=== PATIENT | female | born 1965 | race Caucasian/White ===

== ENCOUNTER 2016-09-29 14:43 | Emergency (ER) | payer BC ==
[~2016-09-29] VITALS: Ht 172.7 cm; Wt 85.0 kg
[2016-09-29 14:48] VITALS: BP 124/71; PULSE 79; RESP 22; TEMP 98; O2SAT 96
--- NOTE | 2016-09-29 14:56 | PD ---
Physical Exam Time Seen by Provider: 14:53 Narrative 51yo F c/o being in afib x3days. Hx of afib. Hoping she was going to convert, but hasn't. Denies anticoagulants. Has been taking ASA since onset. Reports dizziness, near syncope, chest discomfort, and diaphoresis. Patient seen in triage. Awaiting bed placement. VS reviewed. Data Data Last Documented VS Vital Signs Date Time Temp Pulse Resp B/P Pulse Ox O2 Delivery O2 Flow Rate FiO2 09/29/16 14:48 98.0 79 22 124/71 96 MDM Supervised Visit with LAURA: Geri Barton September 29, 2016 14:56
[2016-09-29 15:20] VITALS: BP 123/81; PULSE 135; RESP 20; TEMP 98.7; O2SAT 95
[2016-09-29] MEDS ORDERED: ZYRT10CA PO (15:41)
[2016-09-29] MEDS ORDERED: LISI10TA PO (15:41)
[2016-09-29] MEDS ORDERED: ATEN50TA PO (15:41)
[2016-09-29] MEDS ORDERED: MULTTAB67 PO (15:41)
[2016-09-29] MEDS ORDERED: ATOR40TA16 PO (15:41)
[2016-09-29 15:55] VITALS: BP 100/62; PULSE 129; O2SAT 96
--- NOTE | 2016-09-29 15:57 | PD ---
HPI Chief Complaint: Cardiac Complaint Time Seen by Provider: 15:38 Travel History International Travel<30 days: No Contact w/Intl Traveler<30days: No Traveled to known affect area: No History of Present Illness HPI The patient was seen and examined in the presence of the nurse. This patient complains of rapid atrial fibrillation. She has long-standing history of atrial fibrillation dating back 25 years. She takes no blood thinners. She is been having tachycardia and palpitations for 3 days now. Symptoms severity is mild to moderate. She does have some lightheadedness but no chest pain pressure tightness nor heaviness. No syncope. After 3 days of this and not converting spontaneously she came to the ER. No alleviating factors. PFSH Past Medical History Atrial Fibrillation: Yes (DIAG 25 YRS AGO) Cardiovascular Problems: Yes (afib) Hypertension: Yes Triglycerides - High: Yes Tetanus Vaccination: > 5 Years Influenza Vaccination: Yes ?: Not : 2 Para: 2 Social History Alcohol Use: No (OCC) Tobacco Use: Yes Substance Use: No Allergies-Medications (Allergen,Severity, Reaction): Coded Allergies: Latex (Verified Allergy, Unknown, 09/29/16) Reported Meds & Prescriptions Reported Meds & Active Scripts Active Reported Zyrtec Allergy (Cetirizine HCl) 10 Mg Cap 10 Mg PO DAILY Multiple Vitamin 1 Tab 1 Tab PO DAILY Atorvastatin (Atorvastatin Calcium) 40 Mg Tab 150 Mg PO HS Lisinopril-Hctz 10-12.5 Mg Tab 1 Tab PO DAILY Atenolol 50 Mg Tab 50 Mg PO BID Review of Systems General / Constitutional: No: Fever Eyes: No: Visual changes HENT: Positive: Lightheadedness, No: Headaches Cardiovascular: Positive: Irregular Rhythm, Tachycardia, No: Chest Pain or Discomfort Respiratory: No: Shortness of Breath Gastrointestinal: No: Abdominal Pain Genitourinary: No: Dysuria Musculoskeletal: No: Pain Skin: No Rash Neurologic: No: Weakness Psychiatric: No: Depression Endocrine: No: Polydipsia Hematologic/Lymphatic: No: Easy Bruising Physical Exam Narrative GENERAL: Well-nourished, well-developed patient in no apparent distress. SKIN: Focused skin assessment reveals no rash and nodules. Skin is Warm and dry. HEAD: Atraumatic. Normocephalic. EYES: Pupils equal and round. No scleral icterus. No injection or drainage. ENT: No nasal bleeding or discharge. Mucous membranes pink and moist. NECK: Trachea midline. No JVD. CARDIOVASCULAR: Irregularly irregular rhythm. No murmur appreciated. Heart rate 145 RESPIRATORY: No accessory muscle use. Clear to auscultation. Breath sounds equal bilaterally. GASTROINTESTINAL: Abdomen soft, non-tender, nondistended. Hepatic and splenic margins not palpable. MUSCULOSKELETAL: No obvious deformities. No clubbing. No cyanosis. No edema. NEUROLOGICAL: Awake and alert. No obvious cranial nerve deficits. Motor grossly within normal limits. Normal speech. PSYCHIATRIC: Appropriate mood and affect; insight and judgment normal. Data Data Last Documented VS Vital Signs Date Time Temp Pulse Resp B/P Pulse Ox O2 Delivery O2 Flow Rate FiO2 09/29/16 17:00 82 20 112/58 95 Room Air 09/29/16 15:20 98.7 Orders Electrocardiogram (09/29/16 ) Iv Access Insert/Monitor (09/29/16 15:48) Barrel Rifler Hook / Telemetry OLIVER.Q8H (09/29/16 15:48) Complete Blood Count With Diff (09/29/16 15:48) Basic Metabolic Panel (Bmp) (09/29/16 15:48) Prothrombin Time / Inr (Pt) (09/29/16 15:48) Act Partial Throm Time (Ptt) (09/29/16 15:48) Diltiazem Inj (Cardizem Inj) (09/29/16 16:00) Labs Laboratory Tests Test 09/29/16 15:52 White Blood Count 7.2 TH/MM3 Red Blood Count 4.31 MIL/MM3 Hemoglobin 14.4 GM/DL Hematocrit 40.5 % Mean Corpuscular Volume 93.8 FL Mean Corpuscular Hemoglobin 33.3 PG Mean Corpuscular Hemoglobin 35.5 % Concent Red Cell Distribution Width 12.9 % Platelet Count 208 TH/MM3 Mean Platelet Volume 9.2 FL Neutrophils (%) (Auto) 47.3 % Lymphocytes (%) (Auto) 40.7 % Monocytes (%) (Auto) 9.3 % Eosinophils (%) (Auto) 2.1 % Basophils (%) (Auto) 0.6 % Neutrophils # (Auto) 3.4 TH/MM3 Lymphocytes # (Auto) 2.9 TH/MM3 Monocytes # (Auto) 0.7 TH/MM3 Eosinophils # (Auto) 0.1 TH/MM3 Basophils # (Auto) 0.0 TH/MM3 CBC Comment DIFF FINAL Differential Comment Prothrombin Time 10.6 SEC Prothromb Time International 1.0 RATIO Ratio Activated Partial 24.3 SEC Thromboplast Time Sodium Level 134 MEQ/L Potassium Level 4.2 MEQ/L Chloride Level 96 MEQ/L Carbon Dioxide Level 27.9 MEQ/L Anion Gap 10 MEQ/L Blood Urea Nitrogen 10 MG/DL Creatinine 0.60 MG/DL Estimat Glomerular Filtration 106 ML/MIN Rate Random Glucose 95 MG/DL Calcium Level 9.8 MG/DL [facility] Medical Decision Making Medical Screen Exam Complete: Yes Emergency Medical Condition: Yes Medical Record Reviewed: Yes Differential Diagnosis A. fib with RVR, SVT, ventricular tachycardia Narrative Course I have reviewed the patient's electronic medical record. Extended cardiac monitoring confirms A. fib with RVR with a rate in the 140s I reviewed her EKG IV placed I gave her 20 mg IV Cardizem CBC is normal Metabolic profile is normal Coagulation studies are normal I've monitor the patient for a couple hours after Cardizem and her rate is in the 90s. She feels much better. Stable for outpatient follow-up Recommending she increase her atenolol to 75 mg twice a day and she is going to stop the lisinopril and track her heart rate and blood pressures frequently. Standard of care would be to get her on a blood thinner but she has refused this in the past. I've asked her to speak with her physician about this. She will need to except having increased stroke risk if she does not want blood thinners. She does have an appointment with case fitter October 17 but I told her not to wait until then to have this discussion. She should at least take a daily aspirin while thinking about this. Diagnosis Primary Impression: Atrial fibrillation with RVR Additional Impression: Lightheadedness Additional Instructions: Increase atenolol to 75 mg twice a day Stop lisinopril Check pulse and blood pressure twice daily and if any symptoms occur Call primary physician tomorrow for follow-up as well as recommendations about taking a blood thinner You will be at increased risk for stroke if you do not take a blood thinner Start full-strength daily aspirin until a decision on blood thinners has been made by you and your physician Med/Other Pt SpecificInfo: Other Disposition: DISCHARGE HOME Condition: Stable Alok Campbell MD September 29, 2016 15:57
[2016-09-29] MEDS ORDERED: DILTIAZEM HCL 25 MG/5 ML VIAL IV ONE (16:00)
[2016-09-29 17:00] VITALS: BP 112/58; PULSE 82; RESP 20; O2SAT 95
[2016-09-29 17:31] LABS: AUTOMATED NEUTROPHIL # 3.4 TH/MM3 (1.8-7.7); BASOPHIL % 0.6 % (0.0-2.0); EOSINOPHIL # 0.1 TH/MM3 (0-0.4); EOSINOPHIL % 2.1 % (0.0-4.0); HEMATOCRIT 40.5 % (35.0-46.0); HEMO FLAGS DIFF FINAL; LYMPH % 40.7 % (9.0-44.0); LYMPHOCYTE # 2.9 TH/MM3 (1.0-4.8); MEAN CELL VOLUME 93.8 FL (80.0-100.0); MEAN CORPUSCULAR HEMOGLOBIN 33.3 PG (27.0-34.0); MEAN CORPUSCULAR HGB CONC 35.5 % (32.0-36.0); MONO % 9.3 % (0.0-8.0); NEUT % 47.3 % (16.0-70.0); PLATELET COUNT 208 TH/MM3 (150-450); RED BLOOD COUNT 4.31 MIL/MM3 (4.00-5.30); RED CELL DISTRIBUTION WIDTH 12.9 % (11.6-17.2); WHITE BLOOD COUNT 7.2 TH/MM3 (4.0-11.0)
[2016-09-29 17:54] LABS: APTT (PATIENT) 24.3 SEC (24.3-30.1); PROTHROMBIN TIME - PATIENT 10.6 SEC (9.8-11.6)
[2016-09-29 17:55] LABS: BICARBONATE 27.9 MEQ/L (21.0-32.0); POTASSIUM 4.2 MEQ/L (3.5-5.1)
--- NOTE | 2016-09-30 21:47 | EKG ---
Date Performed: 09/29/2016 Time Performed: 15:02:04 PTAGE: 51 years EKG: ATRIAL FIBRILLATION WITH RAPID VENTRICULAR RESPONSE INFERIOR MYOCARDIAL INFARCTION ABNORMAL ECG NO PREVIOUS TRACING DOCTOR: Jac Mendez Interpretating Date/Time 09/30/2016 21:45:39
== END 2016-09-29 19:05 | disposition home or self-care (01) ==
LOC: NEPC 14:43
DX: I48.91 Unspecified atrial fibrillation (principal); R42 Dizziness and giddiness; R94.31 Abnormal electrocardiogram [ECG] [EKG]; I10 Essential (primary) hypertension; E78.1 Pure hyperglyceridemia; Z72.0 Tobacco use; Z86.79 Personal history of other diseases of the circulatory system
CPT/HCPCS: 80048; 85025; 85610; 85730; 93005; 96374

== ENCOUNTER 2016-10-03 08:07 | Inpatient (IN) | payer BC ==
[~2016-10-03] VITALS: Ht 172.7 cm; Wt 91.5 kg
[~2016-10-03 08:07] MED LIST: ATEN50TA PO; ATOR40TA16 PO; LISI10TA PO; MULTTAB67 PO; ZYRT10CA PO
[2016-10-03 08:11] VITALS: BP 126/84; PULSE 94; RESP 16; TEMP 98.1; O2SAT 99
--- NOTE | 2016-10-03 08:24 | PD ---
HPI Chief Complaint: Cardiac Complaint Time Seen by Provider: 08:23 Travel History International Travel<30 days: No Contact w/Intl Traveler<30days: No Traveled to known affect area: No History of Present Illness HPI 51-year-old female came to the emergency room with history of palpitation and atrial fibrillation with RVR that's been going on for past 3 days. Patient says she has history of atrial fibrillation and has had it for past 18 years. She is on beta aicha which did not cause any problems up until one week ago when she went into RVR. She came to this emergency room and was given Cardizem which slowed her heart rate down. She was doing fine up until Monday when she started getting the same feeling. She has been lightheaded and dizzy. She says she did not want to come during the weekend and hence came today. Her heart rate here was in the 150s. Patient is a daily smoker and drinks alcohol occasionally as well as coffee. She has been drinking coffee and wine over the weekend. She was awake and answering questions appropriately. Her is in the room as well who has been giving additional history. 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 [facility] Past Medical History Narrative Medical List of her past medical, surgical, social and family history was reviewed from the nursing note. Hx Anticoagulant Therapy: No Atrial Fibrillation: Yes (DIAG 25 YRS AGO) Cardiovascular Problems: Yes Hypertension: Yes Triglycerides - High: Yes : 2 Para: 2 Social History Alcohol Use: No (OCC) Tobacco Use: Yes Substance Use: No Allergies-Medications (Allergen,Severity, Reaction): Coded Allergies: Latex (Verified Allergy, Unknown, 10/03/16) Comments List of her allergies reviewed from the nursing note. Reported Meds & Prescriptions Reported Meds & Active Scripts Active Reported Zyrtec Allergy (Cetirizine HCl) 10 Mg Cap 10 Mg PO DAILY Multiple Vitamin 1 Tab 1 Tab PO DAILY Atorvastatin (Atorvastatin Calcium) 40 Mg Tab 20 Mg PO HS Atenolol 50 Mg Tab 75 Mg PO BID Narrative Medication List of her home medications reviewed from the nursing note. Review of Systems Except as stated in HPI: all other systems reviewed are Neg Physical Exam Narrative GENERAL: Awake, alert, obese, moderate distress SKIN: Focused skin assessment warm/dry. Mottling HEAD: Atraumatic. Normocephalic. EYES: Pupils equal and round. No scleral icterus. No injection or drainage. ENT: No nasal bleeding or discharge. Mucous membranes pink and moist. NECK: Trachea midline. No JVD. CARDIOVASCULAR: Irregularly irregular rate and rhythm, tachycardia. No murmur appreciated. RESPIRATORY: No accessory muscle use. Clear to auscultation. Breath sounds equal bilaterally. GASTROINTESTINAL: Abdomen soft, non-tender, nondistended. Hepatic and splenic margins not palpable. MUSCULOSKELETAL: No obvious deformities. No clubbing. No cyanosis. No edema. NEUROLOGICAL: Awake and alert. No obvious cranial nerve deficits. Motor grossly within normal limits. Normal speech. PSYCHIATRIC: Appropriate mood and affect; insight and judgment normal. Data Data Last Documented VS Vital Signs Date Time Temp Pulse Resp B/P Pulse Ox O2 Delivery O2 Flow Rate FiO2 10/03/16 09:12 97 10/03/16 09:12 Nasal Cannula 2 10/03/16 09:09 82 20 121/75 10/03/16 08:11 98.1 Orders Diltiazem Inj (Cardizem Inj) (10/03/16 08:32) Electrocardiogram (10/03/16 08:37) Basic Metabolic Panel (Bmp) (10/03/16 08:37) Ckmb (Isoenzyme) Profile (10/03/16 08:37) Complete Blood Count With Diff (10/03/16 08:37) Magnesium (Mg) (10/03/16 08:37) Prothrombin Time / Inr (Pt) (10/03/16 08:37) Act Partial Throm Time (Ptt) (10/03/16 08:37) Troponin I (10/03/16 08:37) Chest, Single Ap (10/03/16 08:37) Ecg Monitoring (10/03/16 08:37) Bilateral Bp Monitoring (10/03/16 08:37) Iv Access Insert/Monitor (10/03/16 08:37) Oximetry (10/03/16 08:37) Oxygen Administration (10/03/16 08:37) Sodium Chloride 0.9% Flush (Ns Flush) (10/03/16 08:45) Thyroid Stimulating Hormone (10/03/16 08:37) Diltiazem Inj (Cardizem Inj) (10/03/16 08:45) Diltiazem (Cardizem) (10/03/16 08:45) Heparin Infusion OLIVER.Q1H (10/03/16 10:14) Heparin Inj (Heparin Inj) (10/03/16 10:15) Heparin Inj (Heparin Inj) (10/03/16 16:15) Heparin Inj (Heparin Inj) (10/03/16 16:15) Heparin-D5w Inj (Heparin-D5w Inj) (10/03/16 10:15) Act Partial Throm Time (Ptt) (10/03/16 10:14) Cbc No Diff, Includes Plts (10/03/16 10:14) Act Partial Throm Time (Ptt) (10/03/16 17:14) Occult Blood (Hemoccult) Stool (10/03/16 10:14) Place In Observation (10/03/16 ) Vital Signs (Adult) Q4H (10/03/16 11:31) Lump Machine Operator / Telemetry .CONTINUOUS (10/03/16 11:31) Diet Heart Healthy (10/03/16 Lunch) Sodium Chloride 0.9% Flush (Ns Flush) (10/03/16 11:45) Sodium Chloride 0.9% Flush (Ns Flush) (10/03/16 21:00) Acetaminophen (Tylenol) (10/03/16 11:45) Ondansetron Inj (Zofran Inj) (10/03/16 11:45) Basic Metabolic Panel (Bmp) (10/04/16 06:00) Complete Blood Count With Diff (10/04/16 06:00) Troponin I (10/03/16 11:31) Troponin I (10/03/16 17:31) Resp Oxygen Giovanni C Titrat 1-4 L (10/03/16 ) Naloxone Inj (Narcan Inj) (10/03/16 11:45) Echo 2d Comp With Doppler (10/03/16 ) Consult Cardiology (10/03/16 ) Admit Order (Ed Use Only) (10/03/16 11:41) Labs Laboratory Tests Test 10/03/16 08:45 White Blood Count 9.3 TH/MM3 Red Blood Count 4.21 MIL/MM3 Hemoglobin 14.1 GM/DL Hematocrit 39.7 % Mean Corpuscular Volume 94.3 FL Mean Corpuscular Hemoglobin 33.5 PG Mean Corpuscular Hemoglobin 35.6 % Concent Red Cell Distribution Width 13.2 % Platelet Count 193 TH/MM3 Mean Platelet Volume 9.0 FL Neutrophils (%) (Auto) 77.6 % Lymphocytes (%) (Auto) 16.3 % Monocytes (%) (Auto) 4.9 % Eosinophils (%) (Auto) 0.6 % Basophils (%) (Auto) 0.6 % Neutrophils # (Auto) 7.2 TH/MM3 Lymphocytes # (Auto) 1.5 TH/MM3 Monocytes # (Auto) 0.5 TH/MM3 Eosinophils # (Auto) 0.1 TH/MM3 Basophils # (Auto) 0.1 TH/MM3 CBC Comment DIFF FINAL Differential Comment Prothrombin Time 10.7 SEC Prothromb Time International 1.0 RATIO Ratio Activated Partial 23.2 SEC Thromboplast Time Sodium Level 139 MEQ/L Potassium Level 4.3 MEQ/L Chloride Level 103 MEQ/L Carbon Dioxide Level 26.4 MEQ/L Anion Gap 10 MEQ/L Blood Urea Nitrogen 11 MG/DL Creatinine 0.77 MG/DL Estimat Glomerular Filtration 79 ML/MIN Rate Random Glucose 120 MG/DL Calcium Level 9.5 MG/DL Magnesium Level 2.1 MG/DL Total Creatine Kinase 35 U/L Troponin I LESS THAN 0.02 NG/ML Thyroid Stimulating Hormone 1.760 uIU/ML [address] [place] [address] Medical Decision Making Medical Screen Exam Complete: Yes Emergency Medical Condition: Yes Medical Record Reviewed: Yes Interpretation(s) Twelve-lead EKG was reviewed by me. Atrial fibrillation, left axis deviation, RVR. Heart rate of 155 bpm. Differential Diagnosis Atrial fibrillation with RVR, congestive heart failure Narrative Course 10:15 AM patient was given 20 mg of IV Cardizem which slowed her heart rate down into the 80s. Blood test results of back and within normal limit. Patient says she is feeling better. However patient has persistent atrial fibrillation and I recommended an admission to get anticoagulation. She does not want to be admitted for anticoagulation. Wants to be discharged home. I have explained to her that she will have a risk for embolic stroke without getting an echocardiogram to see if there is any blood clot in her heart. Both her and her seemed to understand that were arguing extensively at which point I have let them know that if he could go home but it'll be against medical advise. Patient is in full capacity to make decisions for herself. She will leave AGAINST MEDICAL ADVICE. Her repeat EKG done after 1 hour of Cardizem showed atrial fibrillation with a heart rate of 70s. 11:05 AM I was told that patient decided to stay after all. Awaiting for the hospitalist to call back. Critical Care Narrative Aggregate critical care time was 30 minutes. Time to perform other separately billable procedures was not included in the critical care time. My time did not include minutes spent treating any other patients simultaneously or on activities that did not directly contribute to the patient's treatment. The services I provided to this patient were to treat and/or prevent clinically significant deterioration that could result in: Atrial fibrillation with RVR, slowing heart rate with Cardizem I provided critical care services requiring my management, as noted below: Chart data review, documentation time, medication orders and management, vital sign assessments/reviewing monitor data, ordering and reviewing lab tests, ordering and interpreting/reviewing x-rays and diagnostic studies, care of the patient and discussion of the patient with the admitting physicians. Procedures EKG Prior to Arrival: No Diagnosis Primary Impression: Atrial fibrillation with RVR Admitting Information Admitting Physician Requests: Admit Scripts Diltiazem CD 24 HR (Cardizem CD 24 HR)180 Mg Bkgiv029 Mg PO DAILY 30 Days Prov:Nicky Han MD 10/05/16 Apixaban (Eliquis)5 Mg Tab5 Mg PO BID #60 TAB Ref 0 Prov:Nicky Han MD 10/04/16 Cindy Helm MD October 03, 2016 08:23
--- NOTE | 2016-10-03 08:24 | PD ---
HPI Chief Complaint: Cardiac Complaint Time Seen by Provider: 08:23 Travel History International Travel<30 days: No Contact w/Intl Traveler<30days: No Traveled to known affect area: No PFSH Past Medical History Hx Anticoagulant Therapy: No Atrial Fibrillation: Yes (DIAG 25 YRS AGO) Cardiovascular Problems: Yes Hypertension: Yes Triglycerides - High: Yes : 2 Para: 2 Social History Alcohol Use: No (OCC) Tobacco Use: Yes Substance Use: No Allergies-Medications (Allergen,Severity, Reaction): Coded Allergies: Latex (Verified Allergy, Unknown, 10/03/16) Reported Meds & Prescriptions Reported Meds & Active Scripts Active Reported Zyrtec Allergy (Cetirizine HCl) 10 Mg Cap 10 Mg PO DAILY Multiple Vitamin 1 Tab 1 Tab PO DAILY Atorvastatin (Atorvastatin Calcium) 40 Mg Tab 20 Mg PO HS Atenolol 50 Mg Tab 75 Mg PO BID Data Data Last Documented VS Vital Signs Date Time Temp Pulse Resp B/P Pulse Ox O2 Delivery O2 Flow Rate FiO2 10/03/16 09:12 97 10/03/16 09:12 Nasal Cannula 2 10/03/16 09:09 82 20 121/75 10/03/16 08:11 98.1 Orders Diltiazem Inj (Cardizem Inj) (10/03/16 08:32) Electrocardiogram (10/03/16 08:37) Basic Metabolic Panel (Bmp) (10/03/16 08:37) Ckmb (Isoenzyme) Profile (10/03/16 08:37) Complete Blood Count With Diff (10/03/16 08:37) Magnesium (Mg) (10/03/16 08:37) Prothrombin Time / Inr (Pt) (10/03/16 08:37) Act Partial Throm Time (Ptt) (10/03/16 08:37) Troponin I (10/03/16 08:37) Chest, Single Ap (10/03/16 08:37) Ecg Monitoring (10/03/16 08:37) Bilateral Bp Monitoring (10/03/16 08:37) Iv Access Insert/Monitor (10/03/16 08:37) Oximetry (10/03/16 08:37) Oxygen Administration (10/03/16 08:37) Sodium Chloride 0.9% Flush (Ns Flush) (10/03/16 08:45) Thyroid Stimulating Hormone (10/03/16 08:37) Diltiazem Inj (Cardizem Inj) (10/03/16 08:45) Diltiazem (Cardizem) (10/03/16 08:45) Labs Laboratory Tests Test 10/03/16 08:45 White Blood Count 9.3 TH/MM3 Red Blood Count 4.21 MIL/MM3 Hemoglobin 14.1 GM/DL Hematocrit 39.7 % Mean Corpuscular Volume 94.3 FL Mean Corpuscular Hemoglobin 33.5 PG Mean Corpuscular Hemoglobin 35.6 % Concent Red Cell Distribution Width 13.2 % Platelet Count 193 TH/MM3 Mean Platelet Volume 9.0 FL Neutrophils (%) (Auto) 77.6 % Lymphocytes (%) (Auto) 16.3 % Monocytes (%) (Auto) 4.9 % Eosinophils (%) (Auto) 0.6 % Basophils (%) (Auto) 0.6 % Neutrophils # (Auto) 7.2 TH/MM3 Lymphocytes # (Auto) 1.5 TH/MM3 Monocytes # (Auto) 0.5 TH/MM3 Eosinophils # (Auto) 0.1 TH/MM3 Basophils # (Auto) 0.1 TH/MM3 CBC Comment DIFF FINAL Differential Comment Cindy eHlm MD October 03, 2016 08:24
[2016-10-03] MEDS ORDERED: DILTIAZEM HCL 25 MG/5 ML VIAL ONE (08:32)
[2016-10-03] MEDS ORDERED: DILTIAZEM HCL 90 MG TAB PO ONE (08:45)
[2016-10-03] MEDS ORDERED: SODIUM CHLORIDE 0.9% FLUSH 10 ML FLUSH IVF PRN (08:45)
[2016-10-03] MEDS ORDERED: DILTIAZEM HCL 25 MG/5 ML VIAL IV ONE (08:45)
[2016-10-03 09:09] VITALS: BP 121/75; PULSE 82; RESP 20; O2SAT 96
[2016-10-03 09:12] VITALS: O2SAT 97
[2016-10-03 09:17] LABS: AUTOMATED NEUTROPHIL # 7.2 TH/MM3 (1.8-7.7); BASOPHIL # 0.1 TH/MM3 (0-0.2); BASOPHIL % 0.6 % (0.0-2.0); EOSINOPHIL # 0.1 TH/MM3 (0-0.4); EOSINOPHIL % 0.6 % (0.0-4.0); HEMATOCRIT 39.7 % (35.0-46.0); HEMO FLAGS DIFF FINAL; LYMPH % 16.3 % (9.0-44.0); LYMPHOCYTE # 1.5 TH/MM3 (1.0-4.8); MEAN CELL VOLUME 94.3 FL (80.0-100.0); MEAN CORPUSCULAR HEMOGLOBIN 33.5 PG (27.0-34.0); MEAN CORPUSCULAR HGB CONC 35.6 % (32.0-36.0); MONO % 4.9 % (0.0-8.0); NEUT % 77.6 % (16.0-70.0); PLATELET COUNT 193 TH/MM3 (150-450); RED BLOOD COUNT 4.21 MIL/MM3 (4.00-5.30); RED CELL DISTRIBUTION WIDTH 13.2 % (11.6-17.2); WHITE BLOOD COUNT 9.3 TH/MM3 (4.0-11.0)
[2016-10-03 09:26] LABS: APTT (PATIENT) 23.2 SEC (24.3-30.1); PROTHROMBIN TIME - PATIENT 10.7 SEC (9.8-11.6)
[2016-10-03 09:36] LABS: ANION GAP 10 MEQ/L (5-15); BICARBONATE 26.4 MEQ/L (21.0-32.0); BLOOD UREA NITROGEN 11 MG/DL (7-18); CHLORIDE 103 MEQ/L (98-107); GLOMERULAR FILTRATION RATE 79 ML/MIN (>89); MAGNESIUM 2.1 MG/DL (1.5-2.5); POTASSIUM 4.3 MEQ/L (3.5-5.1); SODIUM (NA) 139 MEQ/L (136-145)
--- NOTE | 2016-10-03 09:47 | RADRPT ---
EXAM DATE/TIME: 10/03/2016 08:47 [facility] COMPARISON: No previous studies available for comparison. INDICATIONS : Rapid heart beat, history of A-fib, not short of breath at this time, smoker MEDICAL HISTORY : A-fib SURGICAL HISTORY : None. ENCOUNTER: Initial ACUITY: 1 day PAIN SCORE: 3/10 LOCATION: Bilateral chest FINDINGS: A single view of the chest demonstrates the lungs to be symmetrically aerated without evidence of mas s, infiltrate or effusion. The cardiomediastinal contours are unremarkable. Osseous structures are intact. CONCLUSION: No acute disease. Osmin Hussein MD on October 03, 2016 at 9:45 Board Certified Radiologist. This report was verified electronically.
[2016-10-03 09:51] LABS: CREATINE KINASE 35 U/L (26-192)
[2016-10-03] MEDS ORDERED: HEPARIN SODIUM - IV 10,000 UNITS/10 ML VIAL IV ONE (10:15)
[2016-10-03] MEDS: HEPARIN-D5W INJ 250 ML IV SCH (11:18)
[2016-10-03] MEDS ORDERED: ONDANSETRON HCL 4 MG/2 ML VIAL IVP PRN (11:45)
[2016-10-03] MEDS ORDERED: ACETAMINOPHEN 325 MG TAB PO PRN (11:45)
[2016-10-03] MEDS ORDERED: NALOXONE HCL 0.4 MG/ML AMP IV PRN (11:45)
[2016-10-03] MEDS ORDERED: SODIUM CHLORIDE 0.9% FLUSH 10 ML FLUSH IV FLUSH PRN (11:45)
[2016-10-03 14:04] LABS: HEMATOCRIT 39.9 % (35.0-46.0); MEAN CELL VOLUME 94.9 FL (80.0-100.0); MEAN CORPUSCULAR HEMOGLOBIN 32.8 PG (27.0-34.0); MEAN CORPUSCULAR HGB CONC 34.5 % (32.0-36.0); PLATELET COUNT 185 TH/MM3 (150-450); RED CELL DISTRIBUTION WIDTH 13.1 % (11.6-17.2); REVIEW FLAG FINAL; WHITE BLOOD COUNT 8.8 TH/MM3 (4.0-11.0)
--- NOTE | 2016-10-03 15:12 | HHI.HP ---
HPI Service [facility] Primary Care Physician Sam Mayer M.D. Admission Diagnosis atrial fibrillation with RVR Diagnoses: Chief Complaint: DIZZINESS, NEAR SYNCOP Travel History International Travel<30 Days: No Contact w/Intl Traveler <30 Da: No Traveled to Known Affected Are: No History of Present Illness This a pleasant 51-year-old female with history of atrial fibrillation for the past 18 years, currently on atenolol, not taking any anticoagulation. Patient presented to the emergency room with complaints of dizziness, near syncope and diaphoresis. Patient was actually seen in the emergency room on 3 days ago for A. fib with RVR and palpitations. She was evaluated, was given Cardizem and her heart rate improved. Her atenolol was increased to 75 mg by mouth twice a day and lisinopril was stopped. Emergency room physician did discuss the need for anticoagulation however patient was concerned and wanted to follow up as outpatient. She was instructed to start full strength daily aspirin until a decision was made. Patient indicates that for the last couple days she has continued to have palpitations, she has tried Valsalva maneuver without any improvement. She did have an appointment in October with Dr. Conway. In the emergency room, patient was evaluated. Laboratory workup was unremarkable. Troponin was negative. TSH was 1.76. EKG was done in patient was noted in A. fib with RVR heart rate up to 155. Patient was given 20 mg IV Cardizem and slowed heart rate down to 80s. Patient received Cardizem 90 mg PO. Patient indicated she wanted to be discharged but again she was explained about her risk for embolic stroke without getting appropriate evaluation. Patient initially adamant to leave AGAINST MEDICAL ADVICE but then agreed to remain in hospital. Patient is currently on a heparin drip. She is been evaluated by Dr. Cnoway. Patient appears less anxious and is agreeable with remaining the hospital. She denies any chest pain at this time, no shortness of breath. Heart rates noted between 90 to 100s, afib. Indicates she does smoke, does not drink alcohol except on social occasions. She's been relatively healthy and works as a nurse at [employer]. Patient is admitted for further evaluation and treatment. Review of Systems Constitutional: COMPLAINS OF: Diaphoretic episodes, Dizziness Endocrine: DENIES: Abnorml menstrual pattern, Heat/cold intolerance, Polydipsia , Polyuria, Polyphagia Eyes: DENIES: Blurred vision, Diplopia, Eye inflammation, Eye pain, Vision loss , Photosensitivity, Double Vision Ears, nose, mouth, throat: DENIES: Tinnitus, Hearing loss, Vertigo, Nasal discharge, Oral lesions, Throat pain, Hoarseness, Ear Pain, Running Nose, Epistaxis, Sinus Pain, Toothache, Odynophagia Respiratory: DENIES: Apneas, Cough, Snoring, Wheezing, Hemoptysis, Sputum production, Shortness of breath Cardiovascular: COMPLAINS OF: Palpitations, Syncope (near syncope), Dyspnea on Exertion, DENIES: Chest pain, PND, Lower Extremity Edema, Orthopnea, Claudication Gastrointestinal: DENIES: Abdominal pain, Black stools, Bloody stools, Constipation, Diarrhea, Nausea, Vomiting, Difficulty Swallowing, Anorexia Genitourinary: DENIES: Abnormal vaginal bleeding, Dysmenorrhea, Dyspareunia, Sexual dysfunction, Urinary frequency, Urinary incontinence, Urgency, Hematuria , Dysuria, Nocturia, Vaginal discharge Musculoskeletal: DENIES: Joint pain, Muscle aches, Stiffness, Joint Swelling, Back pain, Neck pain Integumentary: DENIES: Abnormal pigmentation, Pruritus, Rash, Nail changes, Breast masses, Breast skin changes, Nipple discharge Hematologic/lymphatic: DENIES: Bruising, Lymphadenopathy Immunologic/allergic: DENIES: Eczema, Urticaria Neurologic: DENIES: Abnormal gait, Headache, Localized weakness, Paresthesias, Seizures, Speech Problems, Tremor, Poor Balance Psychiatric: COMPLAINS OF: Anxiety, DENIES: Confusion, Mood changes, Depression, Hallucinations, Agitation, Suicidal Ideation, Homicidal Ideation, Delusions Past Family Social History Past Medical History Atrial fibrillation 18 years, has been on atenolol, no anticoagulation, no aspirin. Has not had any follow-up with cardiology Hypertension Hyperlipidemia Tobacco abuse Hypertriglyceridemia Past Surgical History T&A Reported Medications Reported Meds & Active Scripts Active Reported Zyrtec Allergy (Cetirizine HCl) 10 Mg Cap 10 Mg PO DAILY Multiple Vitamin 1 Tab 1 Tab PO DAILY Atorvastatin (Atorvastatin Calcium) 40 Mg Tab 20 Mg PO HS Atenolol 50 Mg Tab 75 Mg PO BID Allergies: Coded Allergies: Latex (Verified Allergy, Unknown, 10/03/16) Active Ordered Medications Inpatient Medications Acetaminophen (Tylenol) 650 mg Q4H PRN PO TEMP > 100.4; Start 10/03/16 at 11:45 Diltiazem HCl (Cardizem Inj) 20 mg ONCE ONCE IV Last administered on 08:46; Start 10/03/16 at 08:45; Stop 10/03/16 at 08:46; Status DC Diltiazem HCl (Cardizem) 90 mg ONCE ONCE PO Last administered on 10/03/16 09: 10; Start 10/03/16 at 08:45; Stop 10/03/16 at 08:46; Status DC Heparin Sodium (Porcine) (Heparin Inj) 5,000 units UNSCH PRN IV APTT LESS THAN 25; Start 10/03/16 at 16:15 Heparin Sodium (Porcine) 2500 units 2,500 units UNSCH PRN IV APTT 25 TO 39; Start 10/03/16 at 16:15 Heparin Sodium/ Dextrose (Heparin-D5W Inj) 250 ml @ 0 mls/hr TITRATE IV Last administered on 10/03/16 11:18; Start 10/03/16 at 10:15 Naloxone HCl (Narcan Inj) 0.4 mg UNSCH PRN IV SEE LABEL COMMENTS; Start at 11:45 Ondansetron HCl (Zofran Inj) 4 mg Q6H PRN IVP NAUSEA OR VOMITING; Start at 11:45 Sodium Chloride (NS Flush) 2 ml BID IV FLUSH ; Start 10/03/16 at 21:00 Family History Father is alive and well, 81 years old. Mother from pancreatic cancer Brother alive and well, history of valve and aortic aneurysm repair. Social History Patient is , lives with . Works as a nurse at [employer]. Smokes 1 pack a day for many years. Social alcohol use. No substance abuse. Physical Exam Vital Signs Vital Signs Date Time Temp Pulse Resp B/P Pulse Ox O2 Delivery O2 Flow Rate FiO2 10/03/16 09:12 97 10/03/16 09:12 Nasal Cannula 2 10/03/16 09:09 82 20 121/75 96 10/03/16 08:33 136 20 99 Room Air 10/03/16 08:11 98.1 94 16 126/84 99 Physical Exam GENERAL: This is a well-nourished, well-developed patient, in no apparent distress. SKIN: No rashes, ecchymoses or lesions. Cool and dry. HEAD: Atraumatic. Normocephalic. No temporal or scalp tenderness. EYES: Pupils equal round and reactive. Extraocular motions intact. No scleral icterus. No injection or drainage. ENT: Nose without bleeding, purulent drainage or septal hematoma. Throat without erythema, tonsillar hypertrophy or exudate. Uvula midline. Airway patent. NECK: Trachea midline. No JVD or lymphadenopathy. Supple, nontender, no meningeal signs. CARDIOVASCULAR: S1 and S2, irregularly irregular. No murmurs, no rubs, no gallops. RESPIRATORY: Clear to auscultation. Breath sounds equal bilaterally. No wheezes , rales, or rhonchi. GASTROINTESTINAL: Abdomen soft, non-tender, nondistended. No hepato-splenomegaly , or palpable masses. No guarding. MUSCULOSKELETAL: Extremities without clubbing, cyanosis, or edema. No joint tenderness, effusion, or edema noted. No calf tenderness. Negative Homans sign bilaterally. NEUROLOGICAL: Awake and alert. Cranial nerves II through XII intact. Motor and sensory grossly within normal limits. Five out of 5 muscle strength in all muscle groups. Normal speech. Laboratory Laboratory Tests Test 10/03/16 10/03/16 08:45 13:46 White Blood Count 9.3 8.8 Red Blood Count 4.21 4.20 Hemoglobin 14.1 13.8 Hematocrit 39.7 39.9 Mean Corpuscular Volume 94.3 94.9 Mean Corpuscular Hemoglobin 33.5 32.8 Mean Corpuscular Hemoglobin 35.6 34.5 Concent Red Cell Distribution Width 13.2 13.1 Platelet Count 193 185 Mean Platelet Volume 9.0 9.1 Neutrophils (%) (Auto) 77.6 Lymphocytes (%) (Auto) 16.3 Monocytes (%) (Auto) 4.9 Eosinophils (%) (Auto) 0.6 Basophils (%) (Auto) 0.6 Neutrophils # (Auto) 7.2 Lymphocytes # (Auto) 1.5 Monocytes # (Auto) 0.5 Eosinophils # (Auto) 0.1 Basophils # (Auto) 0.1 CBC Comment DIFF FINAL Differential Comment Prothrombin Time 10.7 Prothromb Time International 1.0 Ratio Activated Partial 23.2 64.0 Thromboplast Time Sodium Level 139 Potassium Level 4.3 Chloride Level 103 Carbon Dioxide Level 26.4 Anion Gap 10 Blood Urea Nitrogen 11 Creatinine 0.77 Estimat Glomerular Filtration 79 Rate Random Glucose 120 Calcium Level 9.5 Magnesium Level 2.1 Total Creatine Kinase 35 Troponin I LESS THAN 0.02 LESS THAN 0.02 Thyroid Stimulating Hormone 1.760 3rd Gen Result Diagram: 10/03/16 1346 10/03/16 0845 Imaging Last Impressions Chest X-Ray 10/03/16 0837 Signed Impressions: Service Date/Time: Monday, October 03, 2016 08:47 - CONCLUSION: No acute disease. Osmin Hussein MD Assessment and Plan Problem List: (1) Lightheadedness (2) Atrial fibrillation with RVR (3) Anxiety (4) Hyperlipidemia (5) Tobacco abuse (6) HTN (hypertension) Assessment and Plan Admit to Dr. Han 51-year-old female with history of A. fib for 18 years, has been on atenolol, no anticoagulation. Recently with episodes of A. fib with RVR, symptomatic with palpitations, lightheadedness, near syncopal episode. -Cardiology has been consulted,Dr. Conway has evaluated and recommends to continue heparin for now. He added Cardizem 240 mg by mouth to start tomorrow. Continue atenolol. -Patient has a CHADsVasc score of 2, and will require anticoagulation. Patient to continue on heparin at this time. Cardiology to evaluate echocardiogram to make determination.Pt agreeable to go on anticoagulation if indicated. -Continue with serial cardiac enzymes -Echocardiogram pending Hypertension, stable Continue with home medications Hyperlipidemia Continue home medications Tobacco abuse, 1 pack a day for many years Tobacco abuse counseling completed, patient does not want to use nicotine patch. She's had reactions to the adhesive on the patch. Anxiety We will order Xanax 0.25 mg by mouth every 8 when necessary for anxiety. Home medications reviewed, initiated as indicated Plan of care has been discussed with the patient and her , questions answered in detail. Plan of care discussed with attending and registered nurse. Further management of the patient will be dependent on the hospital course This patient was seen by myself and Dr. Han, this H&P is written on her behalf Physician Certification 2 Midnight Certification Type: Admission for Inpatient Services Order for Inpatient Services The services are ordered in accordance with Medicare regulations or non- Medicare payer requirements, as applicable. In the case of services not specified as inpatient-only, they are appropriately provided as inpatient services in accordance with the 2-midnight benchmark. Estimated LOS (days): 2 2 days is the estimated time the patient will need to remain in the hospital, assuming treatment plan goals are met and no additional complications. Post-Hospital Plan: Home Problem Qualifiers (1) Hyperlipidemia: Qualified Code: E78.5 - Hyperlipidemia, unspecified hyperlipidemia type (2) HTN (hypertension): Qualified Code: I10 - Essential hypertension Nevaeh Lawrence [facility] October 03, 2016 15:12
[2016-10-03 15:31] VITALS: BP 146/84; PULSE 96; RESP 16; O2SAT 97
--- NOTE | 2016-10-03 16:04 | EC ---
Study Study Date:10/03/2016 STUDY CONCLUSIONS SUMMARY - Left ventricle: The cavity size was normal. Wall thickness was normal. Systolic function was normal. The estimated ejection fraction was in the range of 55% to 60%. Wall motion was normal; there were no regional wall motion abnormalities. - Mitral valve: Mild regurgitation. - Left atrium: The atrium was moderately dilated. - Tricuspid valve: Mild regurgitation. If LV function is below 40, please consider prescribing an ACEI or ARB or document rationale for non-use. PROCEDURE DATA STUDY STATUS: Elective. Procedure: Transthoracic echocardiography. Image quality was good. Scanning was performed from the parasternal, apical, and subcostal acoustic windows. Study completion: The patient tolerated the procedure well. Transthoracic echocardiography. M-mode, complete 2D, complete spectral Doppler, and color Doppler. Patient status: Inpatient. CARDIAC ANATOMY LEFT VENTRICLE: The cavity size was normal. Wall thickness was normal. Systolic function was normal. The estimated ejection fraction was in the range of 55% to 60%. Wall motion was normal; there were no regional wall motion abnormalities. AORTIC VALVE: Trileaflet; normal thickness leaflets. Doppler: Transvalvular velocity was within the normal range. There was no stenosis. No regurgitation. AORTA: Aortic root: The aortic root was normal in size. MITRAL VALVE: Structurally normal valve. Doppler: Transvalvular velocity was within the normal range. There was no evidence for stenosis. Mild regurgitation. LEFT ATRIUM: The atrium was moderately dilated. RIGHT VENTRICLE: The cavity size was normal. Wall thickness was normal. PULMONIC VALVE: Doppler: Transvalvular velocity was within the normal range. There was no evidence for stenosis. No regurgitation. TRICUSPID VALVE: Structurally normal valve. Doppler: Transvalvular velocity was within the normal range. Mild regurgitation. PULMONARY ARTERY: The main pulmonary artery was normal-sized. Systolic pressure was within the normal range. RIGHT ATRIUM: The atrium was normal in size. PERICARDIUM: There was no pericardial effusion. SYSTEMIC VEINS: Inferior vena cava: The vessel was normal in size. BASIC MEASUREMENTS ADULT Normal Left ventricle LV internal dimension, ED, chordal level, *40.5 mm 43-52 PLAX LV internal dimension, ES, chordal level, 30.5 mm 23-38 PLAX Fractional shortening, chordal level, PLAX *25 % >29 LV posterior wall thickness, ED 11.7 mm IVS/LVPW ratio, ED 1.12 <1.3 Ventricular septum Septal thickness, ED 13.1 mm Aortic valve Leaflet separation 20 mm 15-26 Right ventricle RV internal dimension, ED, PLAX 22.2 mm 19-38 BASIC MEASUREMENTS ADULT Normal Aortic valve Leaflet separation 20 mm 15-26 Aorta Root diameter, ED 33 mm 20-37 Left atrium Anterior-posterior dimension, ES *41 mm 19-40 LA/aortic root ratio 1.24 DOPPLER MEASUREMENTS ADULT Normal Main pulmonary artery Pressure, S 27 mm Hg =30 Tricuspid valve Regurgitant peak velocity 209 cm/s Peak RV-RA gradient, S 17 mm Hg Systemic veins Estimated CVP 10 mm Hg Right ventricle RV pressure, S 27 mm Hg <30 LEGEND: Mean values are shown as u=mean value. Asterisk (*) valentine values outside specified normal range. Prepared and signed by Maldonado Douglas-[id number]:[id number]
[2016-10-03] MEDS ORDERED: HEPARIN SODIUM - IV 10,000 UNITS/10 ML VIAL IV PRN ×2 (16:15)
[2016-10-03 20:00] VITALS: BP 130/72; PULSE 109; RESP 17; TEMP 97.5; O2SAT 97
[2016-10-03] MEDS: ATENOLOL 50 MG TAB PO SCH (20:20)
[2016-10-03] MEDS: SODIUM CHLORIDE 0.9% FLUSH 10 ML FLUSH IV FLUSH SCH (20:20)
[2016-10-03] MEDS: ATORVASTATIN 20 MG TAB PO SCH (20:21)
[2016-10-03 20:58] VITALS: PULSE 155
[2016-10-03] MEDS: ALPRAZolam 0.25 MG TAB PO PRN (21:45)
[2016-10-04] VITALS (10 sets, daily range): BP systolic 118–140; BP diastolic 60–80; PULSE 70–135; RESP 17–22; TEMP 94.4–98.8; O2SAT 92–97
[2016-10-04 01:23] LABS: APTT (PATIENT) 38.2 SEC (24.3-30.1)
[2016-10-04] MEDS ORDERED: DILTIAZEM HCL 90 MG TAB PO ONE (02:45)
--- NOTE | 2016-10-04 06:45 | MB ---
cc: BEATRICE CONWAY M.D. DATE OF CONSULTATION 10/03/2016 REASON FOR CONSULTATION Thank you Dr. Han for asking me to see this very pleasant 51-year-old white female who is a new patient to me who was referred for chronic atrial fibrillation which she has had the past 18 years. Apparently she has not seen a television camera operator for about 18 years. She has had A. fib with increasing ventricular response. The patient is a pediatric nurse. She was also started on Cardizem recently, but returned because again an episode of A. fib with rapid ventricular response. The patient has agreed to stay in the hospital at this time. She does smoke and rarely drinks alcohol. REVIEW OF SYSTEMS Denies seizure, headache, vomiting, diarrhea, dysuria, or hematuria. A 12-point review of systems is negative. PAST MEDICAL HISTORY 1. Atrial first for 18 years treated with Atenolol, no interval chelation. CHADS-VASc score is 2. 2. Hypertension 3. Hyperlipidemia 4. Tobacco abuse 5. Hypertriglyceridemia ALLERGIES Include MULTIVITAMINS, ZYRTEC, ATORVASTATIN, ATENOLOL, CODED ALLERGIES LASIX. FAMILY HISTORY Father alive and well at [id number]. SOCIAL HISTORY , lives with . is a paramedics. Smoked one pack per day for many years. PHYSICAL EXAM On examination, pulse was 82, earlier the pulse was 136, blood pressure 121/74, respiratory rate 20. EYES: Show no xanthelasma. MOUTH: Shows no cyanosis or pallor. NECK: Shows JVD. CARDIAC: She had two heart sounds. No murmurs. CHEST: Clear. ABDOMEN: Soft. No hepatosplenomegaly. EXTREMITIES: Without edema. NEUROLOGIC: Exam appears intact. LABORATORY DATA White count was 9.3, hemoglobin 14.1, platelet count 193,000, hemoglobin 13.8, platelet count 185,000, random glucose was elevated at 120. ASSESSMENT/PLAN 1. This is a patient with lightheadedness, atrial fibrillation RVR, anxiety, hyperlipidemia, tobacco abuse and hypertension. The patient initially wanted to go home possibly having some withdrawal from tobacco abuse. I had a long discussion with the patient and regarding anticoagulation since her CHADS-VASc is 2 which would put her at risk for stroke. 2. We will plan to control her heart rate with oral diltiazem and oral beta-aicha in combination. She will be discharged in the next couple of days. We will plan to do a further cardiac workup as an outpatient. Hopefully the patient will be agreeable to continue on Eliquis or Xarelto. Beatrice Conway MD, CP,FACC GAIL/DJMarc /7:52 PM /6:32 AM
[2016-10-04] MEDS: HEPARIN-D5W INJ 250 ML IV SCH (08:31)
[2016-10-04] MEDS: SODIUM CHLORIDE 0.9% FLUSH 10 ML FLUSH IV FLUSH SCH ×2 (08:31→20:04)
[2016-10-04] MEDS: ATENOLOL 50 MG TAB PO SCH ×2 (08:32→20:03)
[2016-10-04 08:52] LABS: AUTOMATED NEUTROPHIL # 6.2 TH/MM3 (1.8-7.7); BASOPHIL # 0.1 TH/MM3 (0-0.2); EOSINOPHIL # 0.1 TH/MM3 (0-0.4); EOSINOPHIL % 0.8 % (0.0-4.0); HEMATOCRIT 38.3 % (35.0-46.0); HEMO FLAGS DIFF FINAL; LYMPH % 23.3 % (9.0-44.0); LYMPHOCYTE # 2.2 TH/MM3 (1.0-4.8); MEAN CELL VOLUME 95.4 FL (80.0-100.0); MEAN CORPUSCULAR HEMOGLOBIN 32.2 PG (27.0-34.0); MEAN CORPUSCULAR HGB CONC 33.7 % (32.0-36.0); MONO % 7.8 % (0.0-8.0); NEUT % 67.1 % (16.0-70.0); PLATELET COUNT 164 TH/MM3 (150-450); RED BLOOD COUNT 4.01 MIL/MM3 (4.00-5.30); RED CELL DISTRIBUTION WIDTH 13.5 % (11.6-17.2); WHITE BLOOD COUNT 9.3 TH/MM3 (4.0-11.0)
[2016-10-04 08:58] LABS: APTT (PATIENT) 36.1 SEC (24.3-30.1)
[2016-10-04] MEDS ORDERED: DILTIAZEM-CD 240 MG CAP ER PO SCH (09:00)
[2016-10-04 09:21] LABS: BICARBONATE 26.7 MEQ/L (21.0-32.0); POTASSIUM 3.9 MEQ/L (3.5-5.1)
[2016-10-04] MEDS: ALPRAZolam 0.25 MG TAB PO PRN ×2 (11:54→20:03)
--- NOTE | 2016-10-04 12:18 | HHI.PR ---
Subjective Remarks Sitting on edge of bed Anxious over her hospital stay Afebrile Heart rate is now in the 80s to 90s trending down with by mouth Cardizem Heparin drip (Yue Garcia) Objective Objective Results - Vital Signs Date Time Temp Pulse Resp B/P Pulse Ox O2 Delivery O2 Flow Rate FiO2 10/04/16 10:40 96 10/04/16 09:00 123 10/04/16 08:00 Room Air 10/04/16 08:00 98.8 126 22 126/60 94 Automatic Cuff 10/04/16 05:00 98.7 135 18 118/70 93 10/04/16 04:00 Room Air 10/04/16 00:00 Room Air 10/04/16 00:00 98.4 124 17 138/78 92 10/03/16 20:58 155 10/03/16 20:00 97.5 109 17 130/72 97 10/03/16 20:00 Room Air 10/03/16 15:31 96 16 146/84 97 Room Air I/O 10/03/16 10/03/16 10/03/16 10/04/16 10/04/16 10/04/16 07:00 15:00 23:00 07:00 15:00 23:00 Intake Total 88 ml 82 ml Output Total 300 ml 150 ml Balance -212 ml -68 ml Intake IV Total 88 ml 82 ml Output Urine Total 300 ml 150 ml (Yue Garcia) Result Diagram: 10/04/16 0804 10/04/16 0804 ROS General: Fatigue (generalized), Other (10 point ROS done positives noted other systems negative or unremarkable) Cardiac: Edema (trace bilateral lower extremity), Palpitations (A. fib irregular heart rate with some tachycardia) Pulmonary: Cough (occasional, smoker), Other (mild diminished lung sounds) GI: BM (bowel regimen) (Yue Garcia) Physical Exam Physical Exam PHYSICAL EXAMINATION GENERAL: This is a well-developed, well-nourished female who appears to be in no acute distress. She is alert and awake, anxious borderline tearful HEAD: Normocephalic without any lesion or mass noted. Facial features appear symmetric. OROPHARYNGEAL: Oropharynx without erythema or edema. NECK: Supple. Trachea midline without deviation. CARDIAC: irregular rhythm, regular uncontrolled early a.m. but is trending to normal ranges S1 and S2 are heard. LUNGS: Diminished lower lobes to auscultation bilaterally. No wheezing rales or rhonchi ABDOMEN: Soft, nontender, no organomegaly or masses. Bowel sounds present EXTREMITIES: Minimal trace lower extremity edema. Pulses intact NEUROLOGICAL: Patient mood and affect appropriate. No focal deficit SKIN:Warm and moist Objective Remarks I'm really hoping to get out of the hospital so I can go back to work. I am out of PTO time (Yue Garcia) A/P Assessment and Plan (1) Lightheadedness (2) Atrial fibrillation with RVR (3) Anxiety (4) Hyperlipidemia (5) Tobacco abuse (6) HTN (hypertension) Assessment and Plan 51-year-old female with history of A. fib for 18 years, has been on atenolol, no anticoagulation. Recently with episodes of A. fib with RVR, symptomatic with palpitations, lightheadedness, near syncopal episode. -Cardiology consulted,Dr. Stein He added Cardizem 240 mg PO on board today. Heart rate greater than 100 even into early a.m. late a.m. heart rate 80s to 90s more controlled Continue atenolol., Will be okay for discharge when heart rate controlled. Notes that it may take a couple of days, but patient is pretty adamant to discharge today if possible. Echo done, evaluate and anticoagulant therapy as an outpatient and with her insurance, EF 55-60%, mild tricuspid and mitral regurg Hypertension, stable Continue with home medications Hyperlipidemia Continue home medications Tobacco abuse, 1 pack a day for many years Tobacco abuse counseling continues today, patient does appear to be more motivated to quit now that she has ended up in the hospital with unstable A. fib Anxiety We will order Xanax 0.25 mg by mouth every 8 when necessary for anxiety., Continues to be anxious over hospital stay and is really hoping for discharge This patient was seen by myself and Dr. 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
[2016-10-04] MEDS ORDERED: APIX5TAB PO (15:00)
[2016-10-04] MEDS ORDERED: CARD240C6 PO (15:00)
--- NOTE | 2016-10-04 15:38 | EKG ---
Date Performed: 10/03/2016 Time Performed: 10:05:22 PTAGE: 51 years EKG: ATRIAL FIBRILLATION MARKED LEFT AXIS DEVIATION ABNORMAL ECG Compared to prior tracing no si gnificant change PREVIOUS TRACING : 10/03/2016 08.21 DOCTOR: Beatrice Conway Interpretating Date/Time 10/04/2016 15:37:16
--- NOTE | 2016-10-04 15:38 | EKG ---
Date Performed: 10/03/2016 Time Performed: 08:21:22 PTAGE: 51 years EKG: ATRIAL FIBRILLATION WITH RAPID VENTRICULAR RESPONSE INFERIOR MYOCARDIAL INFARCTION ABNORMAL ECG Compared to prior tracing no significant change PREVIOUS TRACING : 09/29/2016 15.02 DOCTOR: Beatrice Conway Interpretating Date/Time 10/04/2016 15:37:06
--- NOTE | 2016-10-04 19:37 | PD.CARD.PN ---
Subjective Subjective Remarks No chest pain or sob. Wants to go home , on rate slowing medications. Objective Medications Administered Medications Medications (Trade) Dose Ordered Sig/Leighton Route PRN Reason Start Time Stop Time Status Last Admin Dose Admin Heparin Sodium/ Dextrose (Heparin-D5W Inj) 250 ml @ 0 mls/hr TITRATE IV 10/03/16 10:15 10/04/16 23:00 10/04/16 08:31 Sodium Chloride (NS Flush) 2 ml BID IV FLUSH 10/03/16 21:00 10/03/16 20:20 Diltiazem HCl (Cardizem Cd) 240 mg DAILY PO 10/04/16 09:00 10/04/16 08:32 Alprazolam (Xanax) 0.25 mg Q8H PRN PO ANXIETY 10/03/16 16:00 10/04/16 11:54 Atenolol (Tenormin) 75 mg BID PO 10/03/16 21:00 10/04/16 08:32 Atorvastatin Calcium (Lipitor) 20 mg HS PO 10/03/16 21:00 10/03/16 20:21 Vital Signs / I&O Vital Signs Date Time Temp Pulse Resp B/P Pulse Ox O2 Delivery O2 Flow Rate FiO2 10/04/16 18:04 97 21 10/04/16 16:07 94.4 94 22 118/80 97 10/04/16 12:00 98.4 70 22 128/70 97 10/04/16 10:40 96 10/04/16 09:00 123 10/04/16 08:00 Room Air 10/04/16 08:00 98.8 126 22 126/60 94 Automatic Cuff 10/04/16 05:00 98.7 135 18 118/70 93 10/04/16 04:00 Room Air 10/04/16 00:00 Room Air 10/04/16 00:00 98.4 124 17 138/78 92 10/03/16 20:58 155 10/03/16 20:00 97.5 109 17 130/72 97 10/03/16 20:00 Room Air I/O 10/03/16 10/03/16 10/03/16 10/04/16 10/04/16 10/04/16 06:59 14:59 22:59 06:59 14:59 22:59 Intake Total 88 ml 82 ml 240 ml Output Total 300 ml 150 ml 800 ml Balance -212 ml -68 ml -560 ml Intake Oral 240 ml IV Total 88 ml 82 ml Output Urine Total 300 ml 150 ml 800 ml # Bowel Movements 0 Physical Exam GENERAL: Well-nourished, well-developed patient in no apparent distress. SKIN: Warm and dry. NECK: JVD normal - less than or equal to 5 cm H20. CARDIOVASCULAR: Regular rate and rhythm without murmurs, gallops or rubs. RESPIRATORY: Normal breath sounds - equal bilaterally. No accessory muscle use. No wheezes, rales or rubs. PERIPHERY: No cyanosis or edema. Laboratory Laboratory Tests Test 10/04/16 10/04/16 10/04/16 00:57 08:04 08:31 Activated Partial 38.2 SEC 36.1 SEC Thromboplast Time White Blood Count 9.3 TH/MM3 Red Blood Count 4.01 MIL/MM3 Hemoglobin 12.9 GM/DL Hematocrit 38.3 % Mean Corpuscular Volume 95.4 FL Mean Corpuscular Hemoglobin 32.2 PG Mean Corpuscular Hemoglobin 33.7 % Concent Red Cell Distribution Width 13.5 % Platelet Count 164 TH/MM3 Mean Platelet Volume 9.4 FL Neutrophils (%) (Auto) 67.1 % Lymphocytes (%) (Auto) 23.3 % Monocytes (%) (Auto) 7.8 % Eosinophils (%) (Auto) 0.8 % Basophils (%) (Auto) 1.0 % Neutrophils # (Auto) 6.2 TH/MM3 Lymphocytes # (Auto) 2.2 TH/MM3 Monocytes # (Auto) 0.7 TH/MM3 Eosinophils # (Auto) 0.1 TH/MM3 Basophils # (Auto) 0.1 TH/MM3 CBC Comment DIFF FINAL Differential Comment Sodium Level 139 MEQ/L Potassium Level 3.9 MEQ/L Chloride Level 104 MEQ/L Carbon Dioxide Level 26.7 MEQ/L Anion Gap 8 MEQ/L Blood Urea Nitrogen 7 MG/DL Creatinine 0.55 MG/DL Estimat Glomerular Filtration 117 ML/MIN Rate Random Glucose 104 MG/DL Calcium Level 9.4 MG/DL Imaging Last 48 hours Impressions Chest X-Ray 10/03/16 0837 Signed Impressions: Service Date/Time: Monday, October 03, 2016 08:47 - CONCLUSION: No acute disease. Osmin Hussein MD Assessment and Plan Assessment and Plan Doing better sob better Ok to d/c in am will follow up as out patient. Beatrice Conway MD October 04, 2016 19:37
[2016-10-04] MEDS: ATORVASTATIN 20 MG TAB PO SCH (20:03)
[2016-10-04] MEDS: APIXABAN 5 MG TABLET PO SCH (20:04)
[2016-10-05] VITALS: BP 110/80; PULSE 113; RESP 18; TEMP 98.8; O2SAT 94
[2016-10-05] MEDS ORDERED: DILTIAZEM HCL 60 MG TAB PO ONE (01:30)
[2016-10-05 04:00] VITALS: BP 127/73; PULSE 107; RESP 18; TEMP 98.2; O2SAT 93
[2016-10-05 08:00] VITALS: BP 122/70; PULSE 92; RESP 20; TEMP 97.7; O2SAT 94
[2016-10-05] MEDS: SODIUM CHLORIDE 0.9% FLUSH 10 ML FLUSH IV FLUSH SCH (09:00)
[2016-10-05] MEDS ORDERED: DILTIAZEM-CD 180 MG CAP ER PO SCH (09:00)
[2016-10-05] MEDS: APIXABAN 5 MG TABLET PO SCH (09:17)
[2016-10-05] MEDS: ATENOLOL 50 MG TAB PO SCH (09:17)
--- NOTE | 2016-10-05 09:33 | HHI.PR ---
Subjective Interval History awake alert and oreinted anxious to go home Heart rate still in low teens , received an extra dose of CArdizem last night at bedside no chest pain Vitals/Results Intake & Output 10/04/16 10/04/16 10/05/16 15:00 23:00 07:00 Intake Total 240 ml 480 ml 240 ml Output Total 800 ml 450 ml 200 ml Balance -560 ml 30 ml 40 ml Intake Oral 240 ml 480 ml 240 ml Output Urine Total 800 ml 450 ml 200 ml # Bowel Movements 0 0 0 Vital Signs Vital Signs Date Time Temp Pulse Resp B/P Pulse Ox O2 Delivery O2 Flow Rate FiO2 10/05/16 08:00 97.7 92 20 122/70 94 10/05/16 04:00 98.2 107 18 127/73 93 10/05/16 00:00 98.8 113 18 110/80 94 10/04/16 20:00 98.2 113 20 140/80 97 10/04/16 19:57 108 10/04/16 19:30 Room Air 10/04/16 18:04 97 21 10/04/16 16:07 94.4 94 22 118/80 97 10/04/16 12:00 98.4 70 22 128/70 97 10/04/16 10:40 96 CBC/BMP: 10/04/16 0804 10/04/16 0804 Assessment/Plan Assessment/Plan Physical Exam Physical Exam PHYSICAL EXAMINATION GENERAL: This is a well-developed, well-nourished female who appears to be in no acute distress. She is alert and awake, anxious borderline tearful HEAD: Normocephalic without any lesion or mass noted. Facial features appear symmetric. OROPHARYNGEAL: Oropharynx without erythema or edema. NECK: Supple. Trachea midline without deviation. CARDIAC: irregular rhythm, S1 and S2 . LUNGS: Diminished lower lobes to auscultation bilaterally. No wheezing rales or rhonchi ABDOMEN: Soft, nontender, no organomegaly or masses. Bowel sounds present EXTREMITIES: Minimal trace lower extremity edema. Pulses intact NEUROLOGICAL: Patient mood and affect appropriate. No focal deficit SKIN:Warm and moist Plan A/P Assessment and Plan (1) Lightheadedness (2) Atrial fibrillation with RVR (3) Anxiety (4) Hyperlipidemia (5) Tobacco abuse (6) HTN (hypertension) Assessment and Plan 51-year-old female with history of A. fib for 18 years, has been on atenolol, no anticoagulation. Recently with episodes of A. fib with RVR, symptomatic with palpitations, lightheadedness, near syncopal episode. -still in A fib with Heart rate in low teens Appreciate Cardiology input increased Cardizem to 360 mg po daily continue Atenolol On eliquis Off heparin gtt d/w Dr Conway: ok to d/c home, sine patient is really insistant on discharge. Advised to take an extra half a dose of Atenolol at home , if HR> [address] Conway in 1 week Echo done, EF 55-60%, mild tricuspid and mitral regurg Hypertension, stable Continue with home medications Hyperlipidemia Continue home medications Tobacco abuse, 1 pack a day for many years Tobacco abuse counseling continues today, patient does appear to be more motivated to quit now that she has ended up in the hospital with unstable A. fib Anxiety We will order Xanax 0.25 mg by mouth every 8 when necessary for anxiety., Continues to be anxious over hospital stay and is really hoping for discharge Discussed with patient and ok to d/c home Nicky Han MD October 05, 2016 09:33
[2016-10-05] MEDS ORDERED: CARD180C5 PO (09:38)
--- NOTE | 2016-10-05 16:02 | HHI.DS ---
Discharge Summary Admission Date October 04, 2016 at 15:57 Discharge Date: October 05, 2016 Admitting Diagnosis atrial fibrillation with RVR (1) Lightheadedness Diagnosis: Principal (2) Atrial fibrillation with RVR Diagnosis: Principal (3) Anxiety Diagnosis: Principal (4) Hyperlipidemia Diagnosis: Secondary (5) Tobacco abuse Diagnosis: Secondary (6) HTN (hypertension) Diagnosis: Secondary Brief History This was a pleasant 51-year-old female with history of atrial fibrillation for the past 18 years, currently on atenolol, not taking any anticoagulation. Patient presented to the emergency room with complaints of dizziness, near syncope and diaphoresis. Patient was actually seen in the emergency room on 3 days ago for A. fib with RVR and palpitations. She was evaluated, was given Cardizem and her heart rate improved. Her atenolol was increased to 75 mg by mouth twice a day and lisinopril was stopped. Emergency room physician did discuss the need for anticoagulation however patient was concerned and wanted to follow up as outpatient. She was instructed to start full strength daily aspirin until a decision was made. Patient indicates that for the last couple days she has continued to have palpitations, she has tried Valsalva maneuver without any improvement. She did have an appointment in October with Dr. Conway. In the emergency room, patient was evaluated. Laboratory workup was unremarkable. Troponin was negative. TSH was 1.76. EKG was done in patient was noted in A. fib with RVR heart rate up to 155. Patient was given 20 mg IV Cardizem and slowed heart rate down to 80s. Patient received Cardizem 90 mg PO. Patient indicated she wanted to be discharged but again she was explained about her risk for embolic stroke without getting appropriate evaluation. Patient initially adamant to leave AGAINST MEDICAL ADVICE but then agreed to remain in hospital. Patient was currently on a heparin drip. She was been evaluated by Dr. Conway. Patient appeared less anxious and is agreeable with remaining the hospital. She denied any chest pain at this time, no shortness of breath. Heart rates noted between 90 to 100s, afib. Indicated she does smoke, does not drink alcohol except on social occasions. She's been relatively healthy and works as a nurse at [employer]. Patient was admitted for further evaluation and treatment. CBC/BMP: 10/04/16 0804 10/04/16 0804 Significant Findings Laboratory Tests Test 10/03/16 10/03/16 10/03/16 10/04/16 08:45 13:46 17:55 00:57 Neutrophils (%) (Auto) 77.6 % (16.0-70.0) Activated Partial 23.2 SEC 64.0 SEC 39.0 SEC 38.2 SEC Thromboplast Time (24.3-30.1) (24.3-30.1) (24.3-30.1) (24.3-30.1) Estimat Glomerular Filtration 79 ML/MIN (>89) Rate Random Glucose 120 MG/DL (74-106) Troponin I LESS THAN 0.02 LESS THAN 0.02 LESS THAN 0.02 NG/ML NG/ML NG/ML (0.02-0.05) (0.02-0.05) (0.02-0.05) Test 10/04/16 08:31 Activated Partial 36.1 SEC Thromboplast Time (24.3-30.1) Imaging Last Impressions Chest X-Ray 10/03/16 0837 Signed Impressions: Service Date/Time: Monday, October 03, 2016 08:47 - CONCLUSION: No acute disease. Osmin Hussein MD PE at Discharge GENERAL: This was a well-developed, well-nourished female who appeared to be in no acute distress. She is alert and awake, anxious borderline tearful HEAD: Normocephalic without any lesion or mass noted. Facial features appear symmetric. OROPHARYNGEAL: Oropharynx without erythema or edema. NECK: Supple. Trachea midline without deviation. CARDIAC: irregular rhythm, regular uncontrolled early a.m. but is trending to normal ranges S1 and S2 are heard. LUNGS: Diminished lower lobes to auscultation bilaterally. No wheezing rales or rhonchi ABDOMEN: Soft, nontender, no organomegaly or masses. Bowel sounds present EXTREMITIES: Minimal trace lower extremity edema. Pulses intact NEUROLOGICAL: Patient mood and affect appropriate. No focal deficit SKIN:Warm and moist Hospital Course short stay < 48 hrs,. Pt Condition on Discharge: Stable Discharge Disposition: Discharge Home Discharge Instructions DIET: Follow Instructions for: Heart Healthy Diet Activities you can perform: Regular-No Restrictions Follow up Referrals: Cardiology - 1 Week with Zoraida New Medications: Apixaban (Eliquis) 5 Mg Tab 5 MG PO BID Blood Clot Prevention #60 Ref 0 TAB Diltiazem CD 24 HR (Cardizem CD 24 HR) 180 Mg Caper 360 MG PO DAILY tachycardia Days 30 CAP Continued Medications: Atenolol (Atenolol) 50 Mg Tab 75 MG PO BID Blood Pressure Management #14 Ref 0 TAB Atorvastatin (Atorvastatin) 40 Mg Tab 20 MG PO HS Cholesterol Management #30 Ref 0 TAB Cetirizine (Zyrtec Allergy) 10 Mg Cap 10 MG PO DAILY Allergies Ref 0 CAP Multiple Vitamin (Multiple Vitamin) 1 Tab 1 TAB PO DAILY Nutritional Supplement Ref 0 TAB Yue Garcia October 05, 2016 16:01
== END 2016-10-05 10:58 | disposition home or self-care (01) | DRG 310 ==
LOC: NEPC 08:07 → NEDA 11:42 → INTOOBSV 11:42 → N04B 16:01 → OBSVTOIN 10-04 15:57
PROVIDERS: ADMIT Internal Medicine; ATTEND Internal Medicine
DX: I48.2 Chronic atrial fibrillation (principal); I08.1 Rheumatic disorders of both mitral and tricuspid valves; I10 Essential (primary) hypertension; E78.5 Hyperlipidemia, unspecified; E78.1 Pure hyperglyceridemia; F17.210 Nicotine dependence, cigarettes, uncomplicated; F41.9 Anxiety disorder, unspecified; Z91.040 Latex allergy status
CPT/HCPCS: 71010; 80048; 82550; 83735; 84443; 84484; 85025; 85027; 85610; 85730; 93005; 93306; 96374; 96375; J1644